=== PATIENT | male | born 1995 | race African-American/Black ===

== ENCOUNTER 2016-12-18 14:02 | Emergency (ER) | payer OTHER ==
[~2016-12-18 14:02] MED LIST: ALBU17I INH; CEPH500C3 PO; FLUTI110I INH; FOLI1 PO; LORTA5 PO
[2016-12-18 14:04] VITALS: BP 129/71; PULSE 71; RESP 16; TEMP 98.4; O2SAT 99
--- NOTE | 2016-12-18 14:51 | PD ---
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 Pain is 10/10. 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 Patient nauseaous. V/S Stable Awaiting Bed Placement. Data Data Last Documented VS Vital Signs Date Time Temp Pulse Resp B/P Pulse Ox O2 Delivery O2 Flow Rate FiO2 12/18/16 14:04 98.4 71 16 129/71 99 MDM Medical Record Reviewed: Yes Supervised Visit with RODO: Yes Condition: Stable Mich Tripathi December 18, 2016 14:51
[2016-12-18] MEDS ORDERED: SODIUM CHLOR 0.9% 1000 ML INJ 1,000 ML IV ONE (15:07)
[2016-12-18] MEDS ORDERED: LIDOCAINE HCL 2% 50 ML VIAL INFIL ONE (15:15)
[2016-12-18] MEDS ORDERED: ONDANSETRON HCL 4 MG/2 ML VIAL IVP ONE (15:15)
[2016-12-18] MEDS ORDERED: MORPHINE SULFATE 4 MG/ML INJ IV PUSH ONE (15:15)
[2016-12-18 15:27] LABS: AUTOMATED NEUTROPHIL # 9.4 TH/MM3 (1.8-7.7); BASOPHIL # 0.1 TH/MM3 (0-0.2); BASOPHIL % 0.8 % (0.0-2.0); EOSINOPHIL # 0.1 TH/MM3 (0-0.4); EOSINOPHIL % 0.5 % (0.0-4.0); HEMATOCRIT 26.1 % (39.0-51.0); LYMPH % 5.5 % (9.0-44.0); LYMPHOCYTE # 0.7 TH/MM3 (1.0-4.8); MEAN CELL VOLUME 70.7 FL (80.0-100.0); MEAN CORPUSCULAR HEMOGLOBIN 23.5 PG (27.0-34.0); MEAN CORPUSCULAR HGB CONC 33.3 % (32.0-36.0); MONO % 15.2 % (0.0-8.0); PLATELET COUNT 319 TH/MM3 (150-450); RED CELL DISTRIBUTION WIDTH 24.6 % (11.6-17.2); RETIC % 7.6 % (0.4-3.0)
[2016-12-18 15:30] LABS: HEMO FLAGS AUTO DIFF
[2016-12-18 15:31] LABS: REVIEW FLAG AUTO DIFF
[2016-12-18 15:38] LABS: BICARBONATE 26.4 MEQ/L (21.0-32.0); POTASSIUM 3.9 MEQ/L (3.5-5.1)
--- NOTE | 2016-12-18 15:57 | PD ---
Data Data Last Documented VS Vital Signs Date Time Temp Pulse Resp B/P Pulse Ox O2 Delivery O2 Flow Rate FiO2 12/18/16 15:06 18 18 12/18/16 14:04 98.4 129/71 99 Orders Basic Metabolic Panel (Bmp) (12/18/16 15:07) Complete Blood Count With Diff (12/18/16 15:07) Retic Count (12/18/16 15:07) Iv Access Insert/Monitor (12/18/16 15:07) Ondansetron Inj (Zofran Inj) (12/18/16 15:15) Sodium Chlor 0.9% 1000 Ml Inj (Ns 1000 M (12/18/16 15:07) Morphine Inj (Morphine Inj) (12/18/16 15:15) Lidocaine 2% Inj (Xylocaine 2% Inj) (12/18/16 15:15) Labs Laboratory Tests Test 12/18/16 15:10 White Blood Count 12.0 TH/MM3 Red Blood Count 3.70 MIL/MM3 Hemoglobin 8.7 GM/DL Hematocrit 26.1 % Mean Corpuscular Volume 70.7 FL Mean Corpuscular Hemoglobin 23.5 PG Mean Corpuscular Hemoglobin 33.3 % Concent Red Cell Distribution Width 24.6 % Platelet Count 319 TH/MM3 Mean Platelet Volume 8.9 FL Neutrophils (%) (Auto) 78.0 % Lymphocytes (%) (Auto) 5.5 % Monocytes (%) (Auto) 15.2 % Eosinophils (%) (Auto) 0.5 % Basophils (%) (Auto) 0.8 % Neutrophils # (Auto) 9.4 TH/MM3 Lymphocytes # (Auto) 0.7 TH/MM3 Monocytes # (Auto) 1.8 TH/MM3 Eosinophils # (Auto) 0.1 TH/MM3 Basophils # (Auto) 0.1 TH/MM3 CBC Comment AUTO DIFF Differential Total Cells 100 Counted Neutrophils % (Manual) 79 % Band Neutrophils % 1 % Lymphocytes % 6 % Monocytes % 14 % Neutrophils # (Manual) 9.6 TH/MM3 Nucleated Red Blood Cells 2 /100 WBC Differential Comment FINAL DIFF MANUAL Platelet Estimate NORMAL Platelet Morphology Comment NORMAL Sickle Cells 2+ Target Cells 2+ Tear Drop Cells 1+ Ovalocytes 2+ Reticulocyte Count 7.6 % Absolute Reticulocyte Count 281.9 MIL/L Sodium Level 138 MEQ/L Potassium Level 3.9 MEQ/L Chloride Level 104 MEQ/L Carbon Dioxide Level 26.4 MEQ/L Anion Gap 8 MEQ/L Blood Urea Nitrogen 5 MG/DL Creatinine 0.60 MG/DL Estimat Glomerular Filtration 208 ML/MIN Rate Random Glucose 143 MG/DL Calcium Level 8.9 MG/DL MDM Supervised Visit with RODO: Yes Narrative Course Seen and examined by me. Low flow priapism treated with bedside drainage. Observed in ER for several hours without return of symptoms. Feeling well. Discussed need for follow up with heel pricker, stable for discharge. Discussed penile rest x 1 week. Discussed return to ed criteria including hematuria, priapism, increased pain, dysuria, etc. Procedures Procedure Narrative PRIAPISM DRAINAGE: After informed consent and all R/B/C/A discussed with patient he agreed to procedure. Dorsal nerve and dorsal penile block with 2% plain lidocaine to total of 5cc. One 18 angio cath was inserted in each corpora cavernosa. Flushed with salene and approximately 250cc total blood out. Immediate relief of priapism. Over next few hours became completely flacid. 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
[2016-12-18 16:05] LABS: BANDS 1 % (0-6); CORRECTED NUCLEATED RBC 2 /100 WBC (0-0); NEUTROPHIL # MANUAL DIFF 9.6 TH/MM3 (1.8-7.7); POLYS (SEG NEUTROPHILS) 79 % (16-70); WBC DIFF SAMPLE 100
[2016-12-18 16:06] LABS: OVALOCYTES 2+ (NORMAL); PLATELET ESTIMATE SMEAR NORMAL (NORMAL); PLATELET MORPHOLOGY NORMAL (NORMAL); SCAN/DIFF FINAL DIFF MANUAL; SICKLE CELLS 2+ (NORMAL); TARGET CELLS 2+ (NORMAL); TEARDROP RBCS 1+ (NORMAL)
--- NOTE | 2016-12-18 16:54 | PD ---
HPI Chief Complaint: Complaint Time Seen by Provider: 16:50 Travel History International Travel<30 days: No Contact w/Intl Traveler<30days: No Traveled to known affect area: No History of Present Illness HPI 21-year-old male that presents to the ED for evaluation of penile erection. Patient has a history of sickle cell disease. Per patient she's had this issue before but usually gets better with cold showers. Per patient she's had this for about 4 hours with no resolution. Per patient is painful. He denies any chest pain or shortness of breath. No other symptoms. Patient follows with Dr. Singleton for sickle cell. He denies any other medical issues. States that the pain is 8 out of 10. No allergies to medication. Patient comes here with aunt who takes care of the patient and provides most of the information as patient himself is per aunt "shy". He denies taking any medications to help with a rectal dysfunction. No allergies to medication. He is never had to have any procedures done to resolve this. PFSH Past Medical History Anemia: Yes (SICKLE CELL ) Asthma: Yes Autoimmune Disease: No Anxiety: No Depression: No Heart Rhythm Problems: No Cardiovascular Problems: Yes (MURMUR) Chest Pain: Yes Developmental Delay: No Diminished Hearing: No Endocrine: No Gastrointestinal Disorders: No Genitourinary: No Hypertension: No Immune Disorder: No Musculoskeletal: No Neurologic: No Psychiatric: No Reproductive: No Respiratory: Yes Immunizations Current: Yes Sickle Cell Disease: Yes Tetanus Vaccination: Unknown Influenza Vaccination: No ?: Not Past Surgical History Genitourinary Surgery: No Other Surgery: No Social History Alcohol Use: No Tobacco Use: No Substance Use: No Allergies-Medications (Allergen,Severity, Reaction): Coded Allergies: No Known Allergies (Verified , 05/26/16) Reported Meds & Prescriptions Reported Meds & Active Scripts Active Keflex (Cephalexin Monohydrate) 500 Mg Cap 500 Mg PO Q6 7 Days Folate 1 Mg Tab (Folic Acid) 1 Mg Tab 1 Mg PO DAILY Reported Greer 5-325 mg (Hydrocodone-Acetaminophen 5-325 mg) 1 Tab 1 Tab PO DIRECTED PRN Flovent Hfa (Fluticasone Propionate) 110 Mcg Aero 1 Puff INH BID Proventil Mdi (Albuterol Sulfate) 17 Gm Aero 2 Puff INH Q4HPRN Review of Systems Except as stated in HPI: all other systems reviewed are Neg Physical Exam Narrative GENERAL: SKIN: Warm and dry. HEAD: Atraumatic. Normocephalic. EYES: Pupils equal and round. No scleral icterus. No injection or drainage. ENT: No nasal bleeding or discharge. Mucous membranes pink and moist. Tongue is midline. No uvula deviation. NECK: Trachea midline. No JVD. CARDIOVASCULAR: Regular rate and rhythm. RESPIRATORY: No accessory muscle use. Clear to auscultation. Breath sounds equal bilaterally. GASTROINTESTINAL: Abdomen soft, non-tender, nondistended. Hepatic and splenic margins not palpable. Patient has a penile erection that is painful. No sign of discoloration of the penis. No masses or deformities noted. No discharge. This was done with female nurse present. MUSCULOSKELETAL: Extremities without clubbing, cyanosis, or edema. No obvious deformities. NEUROLOGICAL: Awake and alert. No obvious cranial nerve deficits. Motor grossly within normal limits. Five out of 5 muscle strength in the arms and legs. Normal speech. PSYCHIATRIC: Appropriate mood and affect; insight and judgment normal. Data Data Last Documented VS Vital Signs Date Time Temp Pulse Resp B/P Pulse Ox O2 Delivery O2 Flow Rate FiO2 12/18/16 15:06 18 18 12/18/16 14:04 98.4 129/71 99 Orders Basic Metabolic Panel (Bmp) (12/18/16 15:07) Complete Blood Count With Diff (12/18/16 15:07) Retic Count (12/18/16 15:07) Iv Access Insert/Monitor (12/18/16 15:07) Ondansetron Inj (Zofran Inj) (12/18/16 15:15) Sodium Chlor 0.9% 1000 Ml Inj (Ns 1000 M (12/18/16 15:07) Morphine Inj (Morphine Inj) (12/18/16 15:15) Lidocaine 2% Inj (Xylocaine 2% Inj) (12/18/16 15:15) Labs Laboratory Tests Test 12/18/16 15:10 White Blood Count 12.0 TH/MM3 Red Blood Count 3.70 MIL/MM3 Hemoglobin 8.7 GM/DL Hematocrit 26.1 % Mean Corpuscular Volume 70.7 FL Mean Corpuscular Hemoglobin 23.5 PG Mean Corpuscular Hemoglobin 33.3 % Concent Red Cell Distribution Width 24.6 % Platelet Count 319 TH/MM3 Mean Platelet Volume 8.9 FL Neutrophils (%) (Auto) 78.0 % Lymphocytes (%) (Auto) 5.5 % Monocytes (%) (Auto) 15.2 % Eosinophils (%) (Auto) 0.5 % Basophils (%) (Auto) 0.8 % Neutrophils # (Auto) 9.4 TH/MM3 Lymphocytes # (Auto) 0.7 TH/MM3 Monocytes # (Auto) 1.8 TH/MM3 Eosinophils # (Auto) 0.1 TH/MM3 Basophils # (Auto) 0.1 TH/MM3 CBC Comment AUTO DIFF Differential Total Cells 100 Counted Neutrophils % (Manual) 79 % Band Neutrophils % 1 % Lymphocytes % 6 % Monocytes % 14 % Neutrophils # (Manual) 9.6 TH/MM3 Nucleated Red Blood Cells 2 /100 WBC Differential Comment FINAL DIFF MANUAL Platelet Estimate NORMAL Platelet Morphology Comment NORMAL Sickle Cells 2+ Target Cells 2+ Tear Drop Cells 1+ Ovalocytes 2+ Reticulocyte Count 7.6 % Absolute Reticulocyte Count 281.9 MIL/L Sodium Level 138 MEQ/L Potassium Level 3.9 MEQ/L Chloride Level 104 MEQ/L Carbon Dioxide Level 26.4 MEQ/L Anion Gap 8 MEQ/L Blood Urea Nitrogen 5 MG/DL Creatinine 0.60 MG/DL Estimat Glomerular Filtration 208 ML/MIN Rate Random Glucose 143 MG/DL Calcium Level 8.9 MG/DL MDM Medical Decision Making Medical Screen Exam Complete: Yes Emergency Medical Condition: Yes Medical Record Reviewed: Yes Interpretation(s) CBC & BMP Diagram 12/18/16 15:10 Differential Diagnosis Priapism versus erectyle dysfunction versus sickle cell Narrative Course 21-year-old male that presents to the ED for evaluation of priapism. Patient was properly examined and was found to have signs and symptoms consistent with appears to be priapism. Case was discussed immediately with my attending who evaluated the patient and agrees to procedure needs to be done. After patient agreed to the procedure my attending performed aspiration irrigation of the corpus cavernosum. Please refer to his note. Patient alert procedure well. Patient had complete resolution of the priapism. Patient able to urinate with no issues. Labs here were done and were essentially unremarkable. Patient feels improved. Patient was observed for about 2 hours with no issues. Penis is no direct. Patient was told to follow up with his advisory software engineer. See ED if worsening symptoms. Follow with PCP. 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 See ED worsening symptoms. Drink plenty of fluids. Med/Other Pt SpecificInfo: No Change to Meds Disposition: 01 DISCHARGE HOME Condition: Stable Edouard Chance December 18, 2016 16:54
[2016-12-18] MEDS ORDERED: HYDR-2374 PO (17:45)
== END 2016-12-18 21:37 | disposition home or self-care (01) ==
LOC: NEPE 14:02
DX: D57.1 Sickle-cell disease without crisis (principal); N48.32 Priapism due to disease classified elsewhere; J45.909 Unspecified asthma, uncomplicated
CPT/HCPCS: 54220; 80048; 85007; 85027; 85044; 96374; 96375; 99284; J2270; J2405; J7030